=== PATIENT | male | born 2005 | race Caucasian/White ===

== ENCOUNTER 2024-08-29 11:59 | Inpatient (IN) | payer OTHER ==
[~2024-08-29] VITALS: Ht 154.9 cm; Wt 52.3 kg
[2024-08-29] MEDS ORDERED: LOPERAMIDE HCL 2 MG/15 ML SUSPENSION UDCUP PO PRN (14:30)
[2024-08-29] MEDS ORDERED: ZOLPIDEM TARTRATE 5 MG TABLET PO PRN (14:30)
[2024-08-29] MEDS ORDERED: ONDANSETRON HCL 4 MG/2 ML VIAL IVP PRN (14:30)
[2024-08-29] MEDS ORDERED: IPRATROPIUM BROMIDE 0.5 MG/2.5 ML NEB SOLUTION NEB PRN (14:30)
[2024-08-29] MEDS ORDERED: DICYCLOMINE HCL 10 MG CAPSULE PO PRN (14:30)
[2024-08-29] MEDS ORDERED: ALBUTEROL SULFATE 2.5 MG/0.5 ML NEB SOLUTION NEB PRN (14:30)
[2024-08-29] MEDS ORDERED: MAGNESIUM HYDROXIDE SUSPENSION 30 ML UDCUP PO PRN (14:30)
[2024-08-29] MEDS ORDERED: ACETAMINOPHEN 325 MG TABLET PO PRN ×2 (14:30)
[2024-08-29] MEDS ORDERED: MAG HYDROX/ALUMINUM HYD/SIMETH ES 30 ML SUSPENSION UDCUP PO PRN (14:30)
[2024-08-29] MEDS ORDERED: CloNIDine HCL 0.1 MG TABLET PO PRN (14:30)
[2024-08-29] MEDS ORDERED: IBUPROFEN 600 MG TABLET PO PRN (14:30)
[2024-08-29] MEDS ORDERED: BISACODYL 10 MG RECTAL RECTAL SUPPOSITORY PR PRN (14:30)
[2024-08-29 19:04] LABS: APPEARANCE,URINE CLEAR (CLEAR); BILIRUBIN,URINE NEGATIVE (NEGATIVE); COLOR,URINE COLORLESS (YELLOW); GLUCOSE, URINE (UA) NEGATIVE (NEGATIVE); KETONES,URINE NEGATIVE (NEGATIVE); LEUKOCYTE ESTERASE ,URINE NEGATIVE (NEGATIVE); NITRATE,URINE NEGATIVE (NEGATIVE); OCCULT BLOOD,URINE NEGATIVE (NEGATIVE); PH,URINE 7.5 (5.0-8.0); PH,URINE DRUG SCREEN 7.5 (5.0-8.0); PROTEIN,URINE NEGATIVE (NEGATIVE); SPECIFIC GRAVITIY, URINE 1.008 (1.003-1.030); UROBILINOGEN,URINE <=1.0 mg/dL (<=1.0)
[2024-08-29 19:11] LABS: AMPHET/METH SCREEN,URINE NEGATIVE (NEGATIVE); BARBITURATE SCREEN, URINE NEGATIVE (NEGATIVE); BENZODIAZEPINES SCREEN,URINE NEGATIVE (NEGATIVE); CANNABINOID SCREEN,URINE NEGATIVE (NEGATIVE); COCAINE SCREEN,URINE NEGATIVE (NEGATIVE); METHADONE SCREEN, URINE NEGATIVE (NEGATIVE); OPIATE SCREEN,URINE NEGATIVE (NEGATIVE); PHENCYCLIDINE SCREEN,URINE NEGATIVE (NEGATIVE)
[2024-08-29 19:13] LABS: ALCOHOL, URINE DRUG SCREEN NEGATIVE (NEGATIVE)
[2024-08-29 19:18] LABS: BASOPHILS % (AUTO) 0.3 % (0.0-2.0); EOSINOPHILS % (AUTO) 3.6 % (1.0-6.0); HEMATOCRIT 41.5 % (41-53); HEMOGLOBIN 13.5 g/dL (13.5-17.5); LYMPHOCYTES % (AUTO) 31.6 % (22.0-44.0); MEAN CORPUSCULAR HEMOGLOBIN 30.3 pg (26.0-34.0); MEAN CORPUSCULAR HGB CONC 32.4 G/dL (31.0-37.0); MEAN CORPUSCULAR VOLUME 93 fL (80-100); MONOCYTES # (AUTO) 0.8 K/uL (0.1-1.0); MONOCYTES % (AUTO) 12.4 % (2.0-9.0); NEUTROPHILS # (AUTO) 3.3 K/uL (1.8-7.7); NEUTROPHILS % (AUTO) 52.1 % (40.0-70.0); PLATELET COUNT (AUTO) 306 K/uL (150-450); RED BLOOD CELL COUNT(AUTO) 4.45 MIL/uL (4.50-5.90); RED CELL DISTRIBUTION WIDTH 14.2 % (11.5-14.5); WHITE BLOOD COUNT (AUTO) 6.3 K/uL (4.5-11.0)
[2024-08-29 19:27] LABS: ANION GAP 9 mmol/L (8-16); CALCIUM, TOTAL 8.7 mg/dL (8.8-10.5); CARBON DIOXIDE 29 mmol/L (22-29); CHLORIDE 103 mmol/L (98-107); CREATININE 0.77 mg/dL (0.60-1.30); GLOMERULAR FILTR. RATE CALC > 60 mL/min (>60); GLUCOSE,RANDOM 105 mg/dL (70-110); POTASSIUM 3.7 mmol/L (3.5-5.1); SODIUM SERUM 141 mmol/L (136-145); UREA NITROGEN, BLOOD 8 mg/dL (7-18)
[2024-08-29 19:27] LABS: RBC,URINE None Seen /HPF (0-2)
[2024-08-29 19:28] LABS: BACTERIA,URINE None Seen /HPF (None Seen); SQUAMOUS EPITHELIAL CELL,UR None Seen /LPF (None Seen); WBC,URINE 0-2 /HPF (0-5)
[2024-08-29 20:15] VITALS: BP 127/73; PULSE 62; RESP 18; TEMP 97.5; O2SAT 99
[2024-08-29] MEDS ORDERED: HydrOXYzine PAMOATE 50 MG CAPSULE PO PRN (20:30)
[2024-08-29] MEDS ORDERED: BACLOFEN 10 MG TABLET PO PRN (20:30)
[2024-08-29] MEDS ORDERED: PROMETHAZINE HCL 25 MG TABLET PO PRN (20:30)
[2024-08-29] MEDS ORDERED: TraZODone HCL 50 MG TABLET PO PRN (20:30)
[2024-08-30 03:40] VITALS: BP 122/79; PULSE 68; RESP 18; TEMP 98.1; O2SAT 99
[2024-08-30 08:00] VITALS: BP 138/84; PULSE 74; RESP 16; TEMP 97.5; O2SAT 100
[2024-08-30] MEDS: PANTOPRAZOLE SODIUM 40 MG DR TABLET PO SCH (08:57)
[2024-08-30 16:48] VITALS: BP 128/78; PULSE 76; RESP 18; TEMP 97.5; O2SAT 100
[2024-08-30 19:48] VITALS: BP 120/72; PULSE 70; RESP 18; TEMP 98.2; O2SAT 97
[2024-08-31 04:12] VITALS: BP 116/70; PULSE 65; RESP 18; TEMP 97.5; O2SAT 97
[2024-08-31 07:13] VITALS: BP 129/68; PULSE 72; RESP 18; TEMP 97.5; O2SAT 98
[2024-08-31 08:00] VITALS: BP 129/68; PULSE 72; RESP 18; TEMP 97.5; O2SAT 98
[2024-08-31] MEDS ORDERED: ACET-2247 PO (12:01)
[2024-08-31] MEDS ORDERED: ALBU2.5V39 NEB (12:02)
[2024-08-31] MEDS ORDERED: MAG30ORA19 PO (12:04)
[2024-08-31] MEDS ORDERED: MAGN-169 PO (12:06)
[2024-08-31 19:44] VITALS: BP 122/62; PULSE 70; RESP 18; TEMP 97.7; O2SAT 97
== END 2024-08-31 20:40 | DRG 897 ==
LOC: EMS 12:03 → EDH 14:23 → 6N 20:10
PROVIDERS: ADMIT Hospitalist; ATTEND Hospitalist
DX: F15.13 Other stimulant abuse with withdrawal (principal)
CPT/HCPCS: 80048; 80307; 81001; 85025; 99285